=== PATIENT | male | born 1965 | race Native Hawaiian/Other Pacific Islander ===

== ENCOUNTER 2017-12-04 00:49 | Emergency (ER) | payer OTHER ==
[~2017-12-04] VITALS: Ht 172.7 cm; Wt 92.1 kg
[~2017-12-04 00:49] MED LIST: ASPIRIN ADULT L81 MG PO; BUDE1AER5 INH; CLOPIDOGREL75 MG PO; LEVO0.0529 PO; LISI20TA11 PO; MELOXICAM15 MG PO; PANT40TA PO; RANO500T PO; SIMV20TA2 PO
[2017-12-04] MEDS ORDERED: ACET-689 PO (01:09)
[2017-12-04] MEDS ORDERED: ANORO ELLIPTA 61 AER IN (01:10)
[2017-12-04] MEDS ORDERED: NEURONTIN 100M100 MG PO (01:10)
[2017-12-04 01:37] LABS: PLATELET COUNT 191 K/uL (142-355)
[2017-12-04 01:44] LABS: POTASSIUM 3.7 mmol/L (3.6-5.2)
[2017-12-04 02:27] VITALS: BP 150/90; TEMP 98.6
== END 2017-12-04 02:27 | disposition home or self-care (01) ==
LOC: ED 00:49
DX: R35.0 Frequency of micturition (principal); M16.0 Bilateral primary osteoarthritis of hip
CPT/HCPCS: 36415; 80053; 81000; 84153; 85027; 99283

== ENCOUNTER 2018-07-04 11:56 | Emergency (ER) | payer OTHER ==
[~2018-07-04] VITALS: Ht 172.7 cm; Wt 88.5 kg
[~2018-07-04 11:56] MED LIST changes: +ACET-689 PO; +ANORO ELLIPTA 61 AER IN; +NEURONTIN 100M100 MG PO; -PANT40TA PO; +PANTPAK PO
[2018-07-04 12:01] VITALS: TEMP 98.7
[2018-07-04] MEDS ORDERED: HYDR10TA47A PO (12:27)
[2018-07-04] MEDS ORDERED: LEVO0.1224 PO (12:28)
[2018-07-04] MEDS ORDERED: GRALISE600 MG PO (12:28)
[2018-07-04] MEDS ORDERED: VITAMIN D31000 UNIT PO (12:28)
[2018-07-04] MEDS ORDERED: PROVENTIL108 MCG/AC INH (12:29)
[2018-07-04 13:53] LABS: PLATELET COUNT 194 K/uL (142-355)
[2018-07-04 14:05] LABS: POTASSIUM 3.7 mmol/L (3.6-5.2); SODIUM 141 mmol/L (136-145)
[2018-07-04 15:30] VITALS: BP 153/83
== END 2018-07-04 15:30 | disposition home or self-care (01) ==
LOC: ED 11:56
PROVIDERS: Family Medicine
DX: R00.2 Palpitations (principal); R07.89 Other chest pain; R00.1 Bradycardia, unspecified
CPT/HCPCS: 36415; 80053; 81000; 82550; 84484; 85027; 93005; 99283

== ENCOUNTER 2018-07-14 03:11 | Emergency (ER) | payer OTHER ==
[~2018-07-14] VITALS: Ht 172.7 cm; Wt 90.7 kg
[~2018-07-14 03:11] MED LIST changes: +GRALISE600 MG PO; +HYDR10TA47A PO; +LEVO0.1224 PO; +PROVENTIL108 MCG/AC INH; +VITAMIN D31000 UNIT PO
[2018-07-14 04:28] LABS: PLATELET COUNT 182 K/uL (142-355)
[2018-07-14 04:33] LABS: POTASSIUM 3.6 mmol/L (3.6-5.2); SODIUM 133 mmol/L (136-145)
[2018-07-14 06:41] VITALS: BP 150/90; TEMP 98.9
== END 2018-07-14 06:46 | disposition home or self-care (01) ==
LOC: ED 03:11
PROVIDERS: Internal Medicine
DX: R10.84 Generalized abdominal pain (principal); R31.9 Hematuria, unspecified; N20.0 Calculus of kidney; R11.2 Nausea with vomiting, unspecified; Z98.890 Other specified postprocedural states
CPT/HCPCS: 36415; 74022; 80053; 81000; 82150; 82550; 83690; 84484; 85027; 87088; 96374; 96375; 99284; J1885; J2405

== ENCOUNTER 2018-10-14 10:36 | Emergency (ER) | payer OTHER ==
[~2018-10-14] VITALS: Ht 172.7 cm; Wt 83.9 kg
[2018-10-14 12:23] VITALS: BP 160/66; TEMP 97.9
== END 2018-10-14 12:26 | disposition home or self-care (01) ==
LOC: ED 10:36
PROC: 0S9D3ZZ Drainage of Left Knee Joint, Percutaneous Approach (ICD-10-PCS; principal; 2018-10-14)
DX: M25.562 Pain in left knee (principal); M25.462 Effusion, left knee; X50.1XXA Overexertion from prolonged static or awkward postures, initial encounter; Y92.89 Other specified places as the place of occurrence of the external cause
CPT/HCPCS: 99283; J1020

== ENCOUNTER 2019-12-11 09:49 | Outpatient (CLI) | payer OTHER | END 2019-12-11 19:20 | disposition home or self-care (01) | LOC: RESP 09:49 | DX: I25.10 Atherosclerotic heart disease of native coronary artery without angina pectoris (principal); R07.89 Other chest pain; R06.02 Shortness of breath; I73.9 Peripheral vascular disease, unspecified; R09.89 Other specified symptoms and signs involving the circulatory and respiratory systems; R55 Syncope and collapse | CPT/HCPCS: 93225 ==

== ENCOUNTER 2019-12-18 08:35 | Outpatient (CLI) | payer OTHER ==
[~2019-12-18] VITALS: Ht 172.7 cm; Wt 92.1 kg
== END 2019-12-18 19:03 | disposition home or self-care (01) ==
LOC: NM 08:35
DX: I25.10 Atherosclerotic heart disease of native coronary artery without angina pectoris (principal); R07.89 Other chest pain; R06.02 Shortness of breath; R55 Syncope and collapse
CPT/HCPCS: A9500; J2785